=== PATIENT | male | born 1985 | race African-American/Black ===

== ENCOUNTER 2020-11-05 14:18 | Emergency (ER) | payer OTHER ==
[~2020-11-05] VITALS: Ht 167.6 cm; Wt 104.3 kg
[2020-11-05 14:20] VITALS: BP 145/87
[2020-11-05] MEDS ORDERED: PREDNISONE 20 M20 MG PO (15:58)
[2020-11-05] MEDS ORDERED: PROAIR HFA8.5 GM INH (15:58)
[2020-11-05] MEDS ORDERED: TESSALON PERLE100 MG PO (15:58)
== END 2020-11-05 15:58 | disposition home or self-care (01) ==
LOC: ER 14:18
DX: J06.9 Acute upper respiratory infection, unspecified (principal); R05 Cough; Z20.822 Contact with and (suspected) exposure to COVID-19

== ENCOUNTER 2021-01-01 08:40 | Emergency (ER) | payer BC ==
[~2021-01-01] VITALS: Ht 167.6 cm; Wt 99.8 kg
[~2021-01-01 08:40] MED LIST: PREDNISONE 20 M20 MG PO; PROAIR HFA8.5 GM INH; TESSALON PERLE100 MG PO
[2021-01-01] MEDS ORDERED: TESSALON PERLE100 M1 PO (09:59)
[2021-01-01 10:05] VITALS: BP 152/88
== END 2021-01-01 10:10 | disposition home or self-care (01) ==
LOC: ER 08:40
PROVIDERS: Emergency Medicine
DX: J06.9 Acute upper respiratory infection, unspecified (principal); Z20.822 Contact with and (suspected) exposure to COVID-19